=== PATIENT | female | born 1995 | race Caucasian/White ===

== ENCOUNTER 2017-08-17 21:07 | Outpatient (CLI) | payer BC, MEDICAID ==
[2017-08-17] MEDS ORDERED: PRENATAL1 TA7 PO (21:24)
[2017-08-17 21:30] VITALS: BP 149/71; PULSE 90; TEMP 97.6
== END 2017-08-17 22:00 | disposition home or self-care (01) ==
LOC: LDRO 21:07
DX: O62.9 Abnormality of forces of labor, unspecified (principal); Z3A.38 38 weeks gestation of pregnancy